=== PATIENT | female | born 1930 | race Caucasian/White ===

== ENCOUNTER 2021-09-01 15:17 | Emergency (ER) | payer MEDICARE ==
[2021-09-01 16:38] VITALS: BP 187/71; TEMP 98.9
--- NOTE | 2021-09-01 17:09 | XR ---
EXAMINATION TYPE: XR chest 2V DATE OF EXAM: 09/01/2021 COMPARISON: NONE HISTORY: Cough TECHNIQUE: 2 views FINDINGS: Heart is normal. Lungs are clear of infiltrate. No heart failure. There are no hilar masses . Bony thorax is intact. IMPRESSION: No active cardiopulmonary disease. Normal heart.
[2021-09-01] MEDS ORDERED: ACETAMINOPHEN TAB 325 MG TAB PO STA (18:03)
--- NOTE | 2021-09-01 18:06 | ED ---
General Adult HPI - General Chief complaint: Upper Respiratory Infection Stated complaint: Covid+ home test, Cough, Congestion, Headache Time Seen by Provider: 09/01/21 17:57 Source: patient, RN notes reviewed, old records reviewed Mode of arrival: wheelchair Limitations: no limitations - History of Present Illness Initial comments: Patient is an 89-year-old female with past medical history remarkable for diabetes, hypertension, chronic tremor, glaucoma who presents with Department complaining of rhinorrhea, mild nonproductive cough, subjective low-grade fevers at home for the last 2 days. Symptoms started Wednesday. Is currently Wednesday. Was vaccine for Covid as well as boosted. No known sick contacts. sHe presents from [place] and will be staying here for 6 weeks. Denies nausea, vomiting, diarrhea. Denies shortness of breath, chest pain. His no other acute complaints at this time. Presents with family seeking monoclonal antibodies t hat she took a home Covid test was positive. - Related Data Allergies Allergy/AdvReac Type Severity Reaction Status Date / Time No Known Allergies Allergy Verified 09/01/21 16:38 Review of Systems ROS Statement: Those systems with pertinent positive or pertinent negative responses have been documented in the HPI. Review of Systems: CONST: Endorses subjective fever EYES: Denies blurry vision ENT: Endorses nasal congestion C/V: Denies Chest pain RESP: Denies shortness of breath GI: Denies abdominal pain : Denies dysuria SKIN: Denies rash. MSK: Denies joint pain. NEURO: Endorses mild headache ROS Other: All systems not noted in ROS Statement are negative. Past Medical History Past Medical History: Diabetes Mellitus, Hypertension Additional Past Medical History / Comment(s): glaucoma, taken off of HTN and DM medications History of Any Multi-Drug Resistant Organisms: None Reported Past Surgical History: Hysterectomy Past Psychological History: No Psychological Hx Reported Smoking Status: Never smoker Past Alcohol Use History: None Reported Past Drug Use History: None Reported General Exam - General Exam Comments Initial Comments: General: Appears in no acute distress. HEAD: Normal with no signs of head trauma. EYES: EOMI ENT: Hearing grossly intact, normal oropharynx. Mild rhinorrhea RESPIRATORY: Clear breath sounds bilaterally. No wheezes, rales, or rhonchi. No increased work of breathing. No hypoxia. C/V: Regular rate and rhythm. S1 and S2 auscultated, no edema, peripheral pulses 2+ and intact throughout ABD: Abd is soft, nontender, nondistended EXT: No obvious deformity SKIN: No rashes or lesions observed on exposed skin. NEURO: Alert and oriented 4. No focal deficits. Limitations: no limitations Course Vital Signs 09/01/21 09/01/21 16:20 20:41 Temperature 98.9 F Pulse Rate 60 72 Respiratory 18 16 Rate Blood Pressure 187/71 O2 Sat by Pulse 99 Oximetry Medical Decision Making - Medical Decision Making Based on the patient's presentation and physical exam, does appear that she is experiencing acute COVID-19 infection. On test was positive. Testing here was also positive as well as a chest x-ray that shows no acute cardiopulmonary process. She is in no respiratory distress. She is not hypoxic. I discussed results with her as well as her daughter. I recommended monoclonal antibodies which they consented to. We discussed monitoring patient's respiratory status and returning if it gets any worse. Discussed quarantine. She'll be discharged home following monoclonal antibodies. They were in agreement this plan. Patient tolerated therapy. I instructed the patient to follow up with their PCP in the next 3 days. I explained that the patient should return to the emergency department if they experience any worsening symptoms. Strict return precautions were discussed with the patient. The patient expressed understanding of these instructions. I answered all questions that the patient had. The patient was discharged home in good condition with their prescriptions and follow up information. - Lab Data Lab Results 09/01/21 Range/Units 16:40 Coronavirus (PCR) Detected A (Not Detectd) Disposition Clinical Impression: COVID-19 virus infection Disposition: HOME SELF-CARE Condition: Good Instructions (If sedation given, give patient instructions): COVID-19 (Coronavirus Disease 2019) (ED) Is patient prescribed a controlled substance at d/c from ED?: No Referrals: Nonstaff,Physician [Primary Care Provider] - 1-2 days Justen Gardner [STAFF PHYSICIAN] - 1-2 days Time of Disposition: 18:10
[2021-09-01] MEDS ORDERED: BEBTELOVIMAB (EUA) 175 MG/2 ML VIAL IV ONE (18:15)
[2021-09-01 20:44] VITALS: PULSE 72; RESP 16
== END 2021-09-01 20:44 | disposition home or self-care (01) ==
LOC: EC 15:17
DX: U07.1 COVID-19 (principal); I10 Essential (primary) hypertension; E11.9 Type 2 diabetes mellitus without complications
CPT/HCPCS: 99284; 87635; 71046; M0222; Q0222

== ENCOUNTER 2021-09-02 21:17 | Emergency (ER) | payer MEDICARE ==
[2021-09-02] MEDS ORDERED: KETOROLAC 15 MG/ML 1 ML VIAL IVP STA (21:21)
[2021-09-02] MEDS ORDERED: MORPHINE SULFATE 4 MG/ML SYRINGE IVP STA (21:21)
[2021-09-02] MEDS ORDERED: ACETAMINOPHEN TAB 500 MG TAB PO STA (21:21)
[2021-09-02] MEDS ORDERED: SODIUM CHLORIDE 0.9% 1,000 ML IV SCH (21:30)
--- NOTE | 2021-09-02 22:35 | ED ---
Fall HPI - General Chief Complaint: Fall Stated Complaint: Back Pain Time Seen by Provider: 09/02/21 21:20 Source: patient, family, RN notes reviewed, old records reviewed Mode of arrival: EMS Limitations: altered mental status, physical limitation - History of Present Illness Initial Comments: This is a 89-year-old female to the emergency department for evaluation she presents today for evaluation regards to not feeling well. Patient is recent diagnosis of coronavirus. Have a fall earlier this morning complaining of back pain and lower back pain and upper back pain. Patient is very weak unable to amply on her own. Decreased appetite. Patient cannot up or standing MD Complaint: fall -: days(s) Fall From: standing When Fall Occurred: 4-6 hours [employer] Fall Witnessed: no Place Fall Occurred: home Loss of Consciousness: none Prolonged Down Time?: no Symptoms Prior to Fall: none Location: chest, back, pelvis Severity: moderate Severity scale (1-10): 4 Context: tripped/slipped, history of frequent falls, other (Weakness) Associated Symptoms: weakness - Related Data Allergies Allergy/AdvReac Type Severity Reaction Status Date / Time No Known Allergies Allergy Verified 09/01/21 16:38 Review of Systems ROS Statement: Those systems with pertinent positive or pertinent negative responses have been documented in the HPI. ROS Other: All systems not noted in ROS Statement are negative. Past Medical History Past Medical History: Diabetes Mellitus, Hypertension Additional Past Medical History / Comment(s): glaucoma, taken off of HTN and DM medications History of Any Multi-Drug Resistant Organisms: None Reported Past Surgical History: Hysterectomy Past Psychological History: No Psychological Hx Reported Smoking Status: Never smoker Past Alcohol Use History: None Reported Past Drug Use History: None Reported General Exam Limitations: altered mental status, physical limitation General appearance: alert, lethargic, in distress, cachectic Head exam: Present: atraumatic, normocephalic, normal inspection Eye exam: Present: normal appearance, PERRL, EOMI. Absent: scleral icterus, conjunctival injection, periorbital swelling ENT exam: Present: normal exam, mucous membranes dry Neck exam: Present: normal inspection. Absent: tenderness, meningismus, lymphadenopathy Respiratory exam: Present: normal lung sounds bilaterally. Absent: respiratory distress, wheezes, rales, rhonchi, stridor Cardiovascular Exam: Present: regular rate, normal rhythm, normal heart sounds. Absent: systolic murmur, diastolic murmur, rubs, gallop, clicks GI/Abdominal exam: Present: soft, normal bowel sounds. Absent: distended, tenderness, guarding, rebound, rigid Extremities exam: Present: normal inspection, full ROM, normal capillary refill. Absent: tenderness, pedal edema, joint swelling, calf tenderness Back exam: Present: normal inspection Neurological exam: Present: alert, oriented X3, CN II-XII intact Psychiatric exam: Present: normal affect, normal mood Skin exam: Present: warm, dry, intact, normal color. Absent: rash Course Vital Signs 09/02/21 09/03/21 21:22 00:35 Temperature 98.4 F Pulse Rate 64 76 Respiratory 16 12 Rate Blood Pressure 186/75 163/69 O2 Sat by Pulse 97 93 L Oximetry - Reevaluation(s) Reevaluation #1: 09/02/21 23:37 Medical records reviewed Reevaluation #2: 09/02/21 23:37 Patient continues to feel weak Reevaluation #3: 09/03/21 01:46 Patient still having pain but in no distress patient family preferring discharge home Medical Decision Making - Medical Decision Making 89 female significantly weak from coronavirus. Significant malnourished and cac hectic weak back pain. Patient had a fall earlier today no significant trauma noted. Patient has no findings here in the ER and can be discharged home - Lab Data Result diagrams: 09/02/21 22:28 09/02/21 22:28 Lab Results 09/02/21 09/02/21 09/02/21 Range/Units 22:28 22:28 22:28 WBC 4.2 (3.8-10.6) k/uL RBC 4.02 (3.80-5.40) m/uL Hgb 12.9 (11.4-16.0) gm/dL Hct 37.4 (34.0-46.0) % MCV 93.0 (80.0-100.0) fL MCH 32.1 (25.0-35.0) pg MCHC 34.5 (31.0-37.0) g/dL RDW 13.3 (11.5-15.5) % Plt Count 144 L (150-450) k/uL MPV 7.7 Neutrophils % 60 % Lymphocytes % 24 % Monocytes % 9 % Eosinophils % 2 % Basophils % 1 % Neutrophils # 2.6 (1.3-7.7) k/uL Lymphocytes # 1.0 (1.0-4.8) k/uL Monocytes # 0.4 (0-1.0) k/uL Eosinophils # 0.1 (0-0.7) k/uL Basophils # 0.0 (0-0.2) k/uL PT 10.5 (9.0-12.0) sec INR 1.0 (<1.2) APTT 26.5 (22.0-30.0) sec D-Dimer 3.59 H (<0.60) mg/L FEU Sodium 135 L (137-145) mmol/L Potassium 3.7 (3.5-5.1) mmol/L Chloride 104 (98-107) mmol/L Carbon Dioxide 25 (22-30) mmol/L Anion Gap 6 mmol/L BUN 16 (7-17) mg/dL Creatinine 0.75 (0.52-1.04) mg/dL Est GFR (CKD-EPI)AfAm 82 (>60 ml/min/1.73 sqM) Est GFR (CKD-EPI)NonAf 71 (>60 ml/min/1.73 sqM) Glucose 107 H (74-99) mg/dL Plasma Lactic Acid Maximiliano (0.7-2.0) mmol/L Calcium 8.3 L (8.4-10.2) mg/dL Magnesium 1.7 (1.6-2.3) mg/dL Total Bilirubin 0.4 (0.2-1.3) mg/dL AST 29 (14-36) U/L ALT 17 (4-34) U/L Alkaline Phosphatase 56 (38-126) U/L Lactate Dehydrogenase 529 (313-618) U/L C-Reactive Protein 6.4 H (<1.0) mg/dL NT-Pro-B Natriuret Pep pg/mL Total Protein 5.9 L (6.3-8.2) g/dL Albumin 3.5 (3.5-5.0) g/dL 09/02/21 09/02/21 Range/Units 22:28 22:28 WBC (3.8-10.6) k/uL RBC (3.80-5.40) m/uL Hgb (11.4-16.0) gm/dL Hct (34.0-46.0) % MCV (80.0-100.0) fL MCH (25.0-35.0) pg MCHC (31.0-37.0) g/dL RDW (11.5-15.5) % Plt Count (150-450) k/uL MPV Neutrophils % % Lymphocytes % % Monocytes % % Eosinophils % % Basophils % % Neutrophils # (1.3-7.7) k/uL Lymphocytes # (1.0-4.8) k/uL Monocytes # (0-1.0) k/uL Eosinophils # (0-0.7) k/uL Basophils # (0-0.2) k/uL PT (9.0-12.0) sec INR (<1.2) APTT (22.0-30.0) sec D-Dimer (<0.60) mg/L FEU Sodium (137-145) mmol/L Potassium (3.5-5.1) mmol/L Chloride (98-107) mmol/L Carbon Dioxide (22-30) mmol/L Anion Gap mmol/L BUN (7-17) mg/dL Creatinine (0.52-1.04) mg/dL Est GFR (CKD-EPI)AfAm (>60 ml/min/1.73 sqM) Est GFR (CKD-EPI)NonAf (>60 ml/min/1.73 sqM) Glucose (74-99) mg/dL Plasma Lactic Acid Maximiliano 0.7 (0.7-2.0) mmol/L Calcium (8.4-10.2) mg/dL Magnesium (1.6-2.3) mg/dL Total Bilirubin (0.2-1.3) mg/dL AST (14-36) U/L ALT (4-34) U/L Alkaline Phosphatase (38-126) U/L Lactate Dehydrogenase (313-618) U/L C-Reactive Protein (<1.0) mg/dL NT-Pro-B Natriuret Pep 619 pg/mL Total Protein (6.3-8.2) g/dL Albumin (3.5-5.0) g/dL - EKG Data -: EKG Interpreted by Me (EKG is a flutter 62 QRS prolonged QTC 439) - Radiology Data Radiology results: report reviewed (CTA of the chest x-ray has KUB pelvis negative for acute disease), image reviewed Disposition Clinical Impression: Fall, COVID-19 virus infection Disposition: HOME SELF-CARE Condition: Good Instructions (If sedation given, give patient instructions): Fall Prevention for Older Adults (ED) Is patient prescribed a controlled substance at d/c from ED?: No Referrals: None,Stated [Primary Care Provider] - 1-2 days
[2021-09-02 22:40] LABS: Basophils % (A) 1 %; Eosinophils # (A) 0.1 k/uL (0-0.7); Eosinophils % (A) 2 %; HCT 37.4 % (34.0-46.0); HGB 12.9 gm/dL (11.4-16.0); Lymphocytes % (A) 24 %; MCH 32.1 pg (25.0-35.0); MCHC 34.5 g/dL (31.0-37.0); Mean Platelet Volume 7.7; Monocytes # (A) 0.4 k/uL (0-1.0); Monocytes % (A) 9 %; Neutrophils # (A) 2.6 k/uL (1.3-7.7); Neutrophils % (A) 60 %; Platelet Count 144 k/uL (150-450); RBC 4.02 m/uL (3.80-5.40); RDW 13.3 % (11.5-15.5); WBC 4.2 k/uL (3.8-10.6)
[2021-09-02 22:50] LABS: Potassium 3.7 mmol/L (3.5-5.1)
[2021-09-02 22:53] LABS: Albumin 3.5 g/dL (3.5-5.0); C Reactive Protein 6.4 mg/dL (<1.0); Calcium 8.3 mg/dL (8.4-10.2); Magnesium 1.7 mg/dL (1.6-2.3); Total Bilirubin 0.4 mg/dL (0.2-1.3); Total Protein 5.9 g/dL (6.3-8.2)
[2021-09-02 22:55] LABS: Partial Thromboplastin Time 26.5 sec (22.0-30.0); Prothrombin Time 10.5 sec (9.0-12.0)
[2021-09-02] MEDS ORDERED: ONDANSETRON 4 MG/2 ML VIAL IVP STA (23:00)
--- NOTE | 2021-09-02 23:32 | XR ---
EXAMINATION TYPE: XR pelvis AP view DATE OF EXAM: 09/02/2021 COMPARISON: NONE HISTORY: Fall. Pain TECHNIQUE: Single view FINDINGS: The pelvic ring appears intact. Sacroiliac joints are intact. Proximal femurs are intact. I see no hip fracture. IMPRESSION: No acute abnormality of the pelvis.
--- NOTE | 2021-09-02 23:34 | XR ---
EXAMINATION TYPE: XR KUB DATE OF EXAM: 09/02/2021 COMPARISON: NONE HISTORY: Pain TECHNIQUE: 2 views supine FINDINGS: No sign of intestinal obstruction or pneumoperitoneum. Bowel gas pattern is normal. There a re clips from cholecystectomy. No sign of a mass. There is vascular calcification. Lung bases are cam ar. There is slight compression of L2 vertebra probably 20%. IMPRESSION: Nonacute abdomen.
--- NOTE | 2021-09-02 23:35 | XR ---
EXAMINATION TYPE: XR chest 1V DATE OF EXAM: 09/02/2021 COMPARISON: Yesterday HISTORY: Fall. Pain TECHNIQUE: Single view FINDINGS: There is no heart failure nor confluent pneumonic infiltrate. Costophrenic angles are clear . There are no hilar masses. Thoracic aorta is atheromatous. Trachea is midline. IMPRESSION: No active cardiopulmonary disease. No change.
--- NOTE | 2021-09-03 00:36 | CT ---
EXAMINATION TYPE: CT angio chest DATE OF EXAM: 09/03/2021 COMPARISON: None HISTORY: pe CT DLP: 233.5 mGycm Automated exposure control for dose reduction was used. CONTRAST: Performed with IV Contrast, patient injected with 80 mL of Isovue 370. Images obtained from the thoracic inlet to the diaphragm without IV contrast. There are 3-D post proc essed images. There are some calcified pleural plaque at the right lung apex. There is some interstitial coarse den sity in the lower lung jaquez. Heart size is normal. No pericardial effusion. No pleural effusion. Th ere are clips from cholecystectomy. Thoracic aorta is atheromatous. No evidence of filling defect in the pulmonary arteries. No thoracic aortic aneurysm. Ascending aorta measures 2.8 cm. There are no hilar masses. No mediastin al adenopathy. The thoracic spine is intact. No compression fracture. The ribs appear intact. IMPRESSION: No evidence of pulmonary embolism. Mild pulmonary fibrotic changes. Mild cardiomegaly. No suspicious pulmonary mass.
[2021-09-03 01:55] VITALS: BP 190/71; PULSE 74; RESP 18; TEMP 98.3
[2021-09-03] MEDS ORDERED: ACET/COD 300 MG/30 MG STARTER PACK 6 TAB BTL PO STA (01:56)
[2021-09-03] MEDS ORDERED: traMADol 50 MG STARTER PACK 3 TAB BTL PO STA ×2 (02:21→02:39)
== END 2021-09-03 02:47 | disposition home or self-care (01) ==
LOC: EC 21:17
DX: U07.1 COVID-19 (principal); E11.9 Type 2 diabetes mellitus without complications; I10 Essential (primary) hypertension; W01.0XXA Fall on same level from slipping, tripping and stumbling without subsequent striking against object, initial encounter
CPT/HCPCS: 36415; 93005; 85379; 83880; 80053; 82728; 83605; 83615; 83735; 85025; 85610; 85730; 86140; 72170; 71045; 74018; 71275; 99285; 96374; 96375 ×2; 96361 ×5; J2270; J2405; J1885; Q9967